=== PATIENT | female | born 1990 | race Caucasian/White ===

== ENCOUNTER 2022-08-03 16:28 | Emergency (ER) | payer MEDICAID, SELFPAY ==
[2022-08-03 17:00] VITALS: BP 106/72; PULSE 73; RESP 20; TEMP 36.8; O2SAT 96; BMI 28.0
--- NOTE | 2022-08-03 17:29 | EXP.UTC ---
Discharge Plan Disposition Patient Disposition: Home, Self-Care Condition: Good Prescriptions Prescriptions: New nitrofurantoin monohyd/m-cryst [Macrobid] 100 mg capsule 100 mg PO Q12H 5 Days Qty: 10 0RF Rx Instructions: must administer with a meal/food meclizine 25 mg tablet 25 mg PO TID PRN (Reason: dizziness) Qty: 15 0RF No Action desogestrel-ethinyl estradiol [Apri] 0.15-0.03 mg tablet 1 tab PO DAILY Referrals Follow up/Referrals: Provider,Referral, MD [Primary Care Provider] - See instructions Activity Restrictions/Add. Instructions Additional Instructions/Restrictions: Make sure to stand up slowly until medication helps with dizziness Follow up with your Family doctor if no improvement and immediately if any worsening of symptoms Straight to ER if any life threatening symptoms Return if needed Clinical Impressions Clinical Impression: Vertigo Stand Alone Forms Stand Alone Forms: Work/School Release Instructions Patient Instructions: Urinary Tract Infection, Vertigo, DI for Vertigo Discharge ED Provider: Nereida Oliveros [facility] General Stated complaint: Nausa Dizzy Time Seen by Provider: 08/03/22 17:29 History of Present Illness Provider Complaint: Patient states that she was getting out of bed this morning and felt like the room was spinning around her and it made her sick and she vomited States that all day today when she would move her head it made her feel dizzy like the room was spinning and would make her feel nauseous States that she hasnt had any fever or anything and not feeling ill Related Data Home Medications Medication Instructions Recorded Confirmed desogestrel 0.15 mg-ethinyl 1 tab PO DAILY control 08/03/22 08/03/22 estradiol 0.03 mg tablet (Apri) Previous Rx's Medication Instructions Recorded meclizine 25 mg tablet 25 mg PO TID PRN dizziness #15 tabs 08/03/22 nitrofurantoin 100 mg PO Q12H 5 days #10 caps 08/03/22 monohydrate/macrocrystals 100 mg capsule (Macrobid) Allergies Allergy/AdvReac Type Severity Reaction Status Date / Time latex Allergy Verified 08/03/22 17:35 Penicillins Allergy Verified 08/03/22 17:35 strawberry Allergy Verified 08/03/22 17:35 [facility] Disclaimer: The information contained in this section may have been updated after the patient was seen, as this information can be updated by other users. Social History Smoking Status: Unknown if ever smoked alcohol intake: never current occupational status: employed Travel in the last 8 weeks: None ROS Obtained: Yes All systems reviewed & no additional complaints except as documented and Yes Systems reviewed as appropriate & no additional complaints except as documented Constitutional Constitutional: Reports system reviewed and no additional complaints, except as documented, Reports as per HPI, Denies body ache, Denies chills and Denies fever(s) ENT Ears, Nose, Mouth, and Throat: Reports system reviewed and no additional complaints, except as documented, Reports as per HPI and Reports dizziness Cardiovascular Cardiovascular: Reports system reviewed and no additional complaints, except as documented and Reports as per HPI Respiratory Respiratory: Reports system reviewed and no additional complaints, except as documented and Reports as per HPI Gastrointestinal Gastrointestingal: Reports system reviewed and no additional complaints, except as documented, as per HPI, nausea and vomiting (after dizzy spell); Denies abdominal pain Genitourinary Female Genitourinary: Reports system reviewed and no additional complaints, except as documented, Reports as per HPI, Denies dysuria, Denies flank pain, Denies urinary frequency and Denies urinary urgency Neurologic Neurologic: Reports dizziness Physical Exam General General appearance: alert and in no apparent distress Eye Eye exam: Present normal appearance, PERRL and EOMI ENT ENT exam: Present mucous memb
[2022-08-03 17:32] LABS: UTC Pregnancy Test, Urine Negative (Negative)
[2022-08-03 17:33] LABS: Apearance,Urine Turbid (Clear); Color,Urine Dark Yellow (Yellow); Glucose,Urine (UA) Negative (Negative); Ketones,Urine TRACE (Negative); PH,Urine 7.5 (5.0-8.5); Protein,Urine 1+ (Negative)
[2022-08-03 17:34] LABS: Bilirubin,Urine Trace (Negative); Blood, Urine 3+ (Negative); UTC Leukocyte Esterase,Urine Trace (Negative); UTC Nitrate,Urine Negative (Negative); Urobilinogen,Urine 1 EU/dl (0.2)
--- NOTE | 2022-08-03 18:07 | PC.NURSE ---
Checked on pt and stated that since medication her dizziness is much better
[2022-08-03 18:12] VITALS: BP 106/72; PULSE 73; RESP 20; TEMP 36.8; O2SAT 96
== END 2022-08-03 18:12 | disposition home or self-care (01) ==
PROVIDERS: Emergency Provider Nurse Practitioner
DX: R42 Dizziness and giddiness (principal); R11.0 Nausea
CPT/HCPCS: 81003; 81025; 87086; 99212; 99214; G0463

== ENCOUNTER 2023-02-14 15:40 | Emergency (ER) | payer BC, SELFPAY ==
[2023-02-14 16:00] VITALS: BP 110/70; PULSE 83; RESP 19; TEMP 36.9; O2SAT 98; BMI 22.3
--- NOTE | 2023-02-14 16:30 | EXP.UTC ---
Discharge Plan Disposition Patient Disposition: Home, Self-Care Condition: Good Prescriptions Prescriptions: No Action Classic 28 mg iron- 800 mcg tablet 1 tab PO DAILY Referrals Follow up/Referrals: Patric Delgado MD [Primary Care Provider] - See instructions Activity Restrictions/Add. Instructions Additional Instructions/Restrictions: Follow up with OBGYN for further evaluation and examination Straight to ER if symptoms get worse Return if needed Straight to ER if any life threatening symptoms Clinical Impressions Clinical Impression: Encounter for test with result negative Discharge ED Provider: Neerida Oliveros [facility] [place] General Stated complaint: cramps, spotting, pos preg at home test Mode of Arrival: Ambulatory Source of Information: Patient Limitations: No Limitations Time Seen by Provider: 02/14/23 16:30 Description of Symptoms (Recalled from Triage Doc. by RN): Abdominal pain. She has been spotting blood, back pain, and positive home preg test. She had a tubal reversal november 18 HEENT Symptoms (Recalled from RN notes): No Resp Symptoms (Recalled from RN notes): No Skin Symptoms (Recalled from RN notes): No MS Symptoms (Recalled from RN notes): No Functional Status (Recalled from RN notes): n/a History of Present Illness Provider Complaint: Patient states that she has been having pain in her left lower abdomen, states that she had Tubal reversal surgery in October in [place] and she took several home test and they had a faint line and now she is spotting and having achy like pain in back so she came in to get checked Related Data Home Medications Medication Instructions Recorded Confirmed vits no.126-ferrous fum 1 tab PO DAILY Supplement 12/29/22 02/14/23 28 mg iron-folic acid 800 mcg tablet (Classic ) Allergies Allergy/AdvReac Type Severity Reaction Status Date / Time latex Allergy Verified 02/14/23 16:17 Penicillins Allergy Verified 02/14/23 16:17 strawberry Allergy Verified 02/14/23 16:17 Worker's Comp Is this a Worker's Comp case?: No [facility] Disclaimer: The information contained in this section may have been updated after the patient was seen, as this information can be updated by other users. Social History Smoking Status: Unknown if ever smoked alcohol intake: never current occupational status: employed Travel in the last 8 weeks: None ROS Obtained: Yes All systems reviewed & no additional complaints except as documented and Yes Systems reviewed as appropriate & no additional complaints except as documented Constitutional Constitutional: Reports system reviewed and no additional complaints, except as documented and Reports as per HPI ENT Ears, Nose, Mouth, and Throat: Reports system reviewed and no additional complaints, except as documented and Reports as per HPI Cardiovascular Cardiovascular: Reports system reviewed and no additional complaints, except as documented and Reports as per HPI Respiratory Respiratory: Reports system reviewed and no additional complaints, except as documented and Reports as per HPI Gastrointestinal Gastrointestingal: Reports system reviewed and no additional complaints, except as documented, as per HPI, abdominal pain and cramping Genitourinary Female Genitourinary: Reports system reviewed and no additional complaints, except as documented, Reports as per HPI and Reports flank pain Integumentary/Breasts Skin/Breast: Reports system reviewed and no additional complaints, except as documented and Reports as per HPI Neurologic Neurologic: Reports system reviewed and no additional complaints, except as documented and Reports as per HPI Physical Exam General General appearance: alert and in no apparent distress ENT ENT exam: Present mucous membranes moist Respiratory Respiratory exam: Present normal lung sounds bilaterally; Absent respirato
[2023-02-14 16:39] LABS: UTC Pregnancy Test, Urine Negative (Negative)
[2023-02-14 16:43] LABS: Microscopic, Urine URINE MICROSCOPIC (MICROSCOPIC)
[2023-02-14 16:52] LABS: Appearance,Urine CLEAR (Clear); Bilirubin,Urine Negative (Negative); Blood, Urine 2+ (Negative); Color,Urine YELLOW (Yellow); Glucose,Urine (UA) Negative (Negative); Ketones,Urine Negative (Negative); Leukocyte Esterase,Urine Negative (Negative); Nitrate,Urine Negative (Negative); Protein,Urine Negative (Negative); Specific Gravity, Urine >= 1.030 (1.005-1.030); Urobilinogen,Urine 0.2 EU/dl (0.2)
[2023-02-14 17:05] LABS: HCG Qualitative, Serum Negative (Negative)
[2023-02-14 17:15] VITALS: BP 110/70; PULSE 83; RESP 19; TEMP 36.9; O2SAT 98
[2023-02-14 17:22] LABS: RBC,Urine Occasional #/hpf (0-3)
== END 2023-02-14 17:15 | disposition home or self-care (01) ==
PROVIDERS: Emergency Provider Nurse Practitioner; PCP Family Medicine
DX: Z32.02 Encounter for pregnancy test, result negative (principal); R10.32 Left lower quadrant pain; M54.59 Other low back pain
CPT/HCPCS: 81001; 81025; 84703; 99212; 99213; G0463

== ENCOUNTER 2023-12-13 10:20 | Emergency (ER) | payer MEDICAID, SELFPAY ==
[2023-12-13] VITALS (9 sets, daily range): BP systolic 100–116; BP diastolic 59–79; PULSE 65–109; RESP 18–20; TEMP 36.9; O2SAT 95–100; BMI 27.1
--- NOTE | 2023-12-13 10:24 | HMH.EDGENADL ---
Discharge Plan Disposition Patient Disposition: Home, Self-Care Condition: Good Prescriptions Prescriptions: New cefdinir 300 mg capsule 300 mg PO BID 10 Days Qty: 20 0RF No Action Classic 28 mg iron- 800 mcg tablet 1 tab PO DAILY Referrals Follow up/Referrals: Klely Cifuentes DO [Primary Care Provider] - See instructions Activity Restrictions/Add. Instructions Additional Instructions/Restrictions: You have been evaluated in the ED for your complaints. You may follow-up with your PCP in the next 3 to 5 days. Please return to ED for any new or worsening symptoms. I have written for cefdinir to treat your UTI. Please take this as discussed. Please follow-up with [employer] [facility] [employer] [facility] as needed as discussed. Clinical Impressions Clinical Impression: Abdominal cramping, Vaginal bleeding, UTI (urinary tract infection) Discharge ED Provider: Dakota Avalos General Adult HPI General Chief complaint: Vaginal Bleeding Stated complaint: pos preg test, bleeding, abd pain, tubal reversal Time Seen by Provider: 12/13/23 10:24 History of Present Illness HPI narrative: 33-year-old female with past medical history significant for anxiety, depression, tubal reversal in October 2022, presents today for evaluation concerning vaginal bleeding which she states has been present over the past 2 days. She notes that she was supposed to have a menstrual cycle this past Wednesday and was late and so she took multiple tests at home that were positive. She states that she has also had abdominal cramping this morning since around 2:30 AM. Denies having any nausea, vomiting, fevers, chills, chest pain, shortness of breath. She denies any other associated symptoms at this time. No further complaints. Related Data Home Medications Medication Instructions Recorded Confirmed vits no.126-ferrous fum 1 tab PO DAILY Supplement 12/29/22 02/14/23 28 mg iron-folic acid 800 mcg tablet (Classic ) Previous Rx's Medication Instructions Recorded cefdinir 300 mg capsule 300 mg PO BID 10 days #20 caps 12/13/23 Allergies Allergy/AdvReac Type Severity Reaction Status Date / Time latex Allergy Verified 02/14/23 16:17 Penicillins Allergy Verified 02/14/23 16:17 strawberry Allergy Verified 02/14/23 16:17 [facility] Disclaimer: The information contained in this section may have been updated after the patient was seen, as this information can be updated by other users. Social History Smoking Status: Never smoker alcohol intake: never current occupational status: employed Travel in the last 8 weeks: None ROS Obtained: Yes All systems reviewed & no additional complaints except as documented Physical Exam General General appearance: alert and in no apparent distress Head Head exam: atraumatic and normocephalic Eye Eye exam: Present normal appearance, PERRL and EOMI ENT ENT exam: Present normal oropharynx and mucous membranes moist Neck Neck exam: Present full ROM; Absent meningismus Respiratory Respiratory exam: Absent respiratory distress, wheezes, stridor or accessory muscle use Cardiovascular Cardiovascular exam: Present normal rhythm Abdominal Exam Abdominal exam: Present soft and tenderness (Generalized tenderness to palpation of the abdomen); Absent distention, guarding, rebound or rigidity Neurological Exam Neurological exam: Present alert, oriented X3 and CN II-XII intact; Absent motor sensory deficit Psychiatric Psychiatric exam: Present normal affect and normal mood Skin Skin exam: Present warm and dry Medical Decision Making Medical Records Medical records reviewed: Yes I reviewed the patient's medical records. Alexi Inquiry Pt receiving controlled substance: No Alexi was queried for this patient: No Vital Signs: 12/13/23 10:29 12/13/23 10:34 12/13/23 10:43 Temperature 98.5 F Temperature Source Oral Pulse Rate 107 H 99 H Pulse Rate [Left Radial] 109 H Respiratory Rate 20 Blood Pressure 111/69 116/79 Blood Pressure [Right Arm] 111/69 Blood Pressure Mean [Right Arm] 83 02 Sat by Pulse Oximetry 99 100 98 Oxygen Delivery Method Room Air Room Air Room Air 12/13/23 11:00 12/13/23 11:30 12/13/23 12:00 Temperature Temperature Source Pulse Rate 77 70 69 Pulse Rate [Left Radial] Respiratory Rate Blood Pressure 110/77 103/64 L 103/68 L Blood Pressure [Right Arm] Blood Pressure Mean [Right Arm] 02 Sat by Pulse Oximetry 95 96 97 Oxygen Delivery Method Room Air Room Air Room Air Lab Data Lab Results 12/13/23 10:25: Urine Color Red, Urine Appearance Turbid, Urine pH 7.0, Ur Specific [place] 1.020, Urine Protein 3+, Urine Glucose (UA) Negative, Urine Ketones 1+, Urine Blood 3+, Urine Nitrate Positive, Urine Bilirubin 1+ A, Urine Urobilinogen 4.0, Ur Leukocyte Esterase 2+ A, Urine RBC Tntc, Urine WBC 10-20, Ur Squamous Epith Cells Occasional, Urine Bacteria 1+ 12/13/23 10:30: WBC 9.1, RBC 4.49, Hgb 13.7, Hct 40.2, MCV 89.7, MCH 30.6, MCHC 34.1, RDW 13.1, Plt Count 266, MPV 9.0, Neut % (Auto) 78.0, Lymph % (Auto) 16.8, Iron % (Auto) 3.7, Eos % (Auto) 1.0, Baso % (Auto) 0.6, Neut # (Auto) 7.1, Lymph # (Auto) 1.5, Iron # (Auto) 0.3, Eos # (Auto) 0.1, Baso # (Auto) 0.1, Sodium 140, Potassium 3.9, Chloride 106, Carbon Dioxide 27, Anion Gap 10.9, BUN 16, Creatinine 0.70, Estimated Creat Clear 107, Estimated GFR 97, Est GFR ( Amer) 117, Glucose 92, Lactate 0.9, Calcium 9.6, Total Bilirubin 0.6, AST 30, ALT 20, Alkaline Phosphatase 48, Total Protein 7.9, Albumin 4.6, Globulin 3.3 H, Albumin/Globulin Ratio 1.4, Lipase 99, Serum HCG, Qual Negative, Blood Type A Positive, Antibody Screen Negative 12/13/23 10:30 12/13/23 10:30 Orders (Tests/Meds): ED MEDICATIONS Discontinued Medications Generic Name Dose Route Start Last Admin Trade Name Indira PRN Reason Stop Dose Admin Acetaminophen 1,000 mg 12/13/23 10:31 12/13/23 10:42 Acetaminophen 500mg Tab PO 12/13/23 10:32 1,000 mg ONCE ONE Administration Ondansetron HCl 4 mg 12/13/23 10:31 12/13/23 10:42 Ondansetron 4mg Odt SL 12/13/23 10:32 4 mg ONCE ONE Administration ORDERS Category Date Time Status Type and Screen Stat BBK 12/13/23 10:30 Completed CBC w/Auto Diff [Complete Blood Count Auto Diff] Stat Lab 12/13/23 10:30 Completed CMP [Comprehensive Metabolic Panel] Stat Lab 12/13/23 10:30 Completed Lactic Acid Stat Lab 12/13/23 10:30 Completed Lipase Stat Lab 12/13/23 10:30 Completed Serum Beta HCG [HCG Qualitative, Serum] Stat Lab 12/13/23 10:30 Completed UA [Urinalysis and Microscopic] Stat Lab 12/13/23 10:25 Completed Urine Culture Stat Micro 12/13/23 10:25 Received Medical Decision Narrative: 33-year-old female with past medical history significant for anxiety, depression, tubal reversal in October 2022, presents today for evaluation concerning vaginal bleeding which she states has been present over the past 2 days. She notes that she was supposed to have a menstrual cycle this past Wednesday and was late and so she took multiple tests at home that were positive. She states that she has also had abdominal cramping this morning since around 2:30 AM. On assessment she was hemodynamically stable and in no acute distress. Afebrile. Chest clear to auscultation bilaterally. Abdomen was soft nondistended and generally tender to palpation. Other physical exam findings unremarkable. Differential diagnoses include not limited to , spontaneous , UTI, nephrolithiasis, among others. Labs today have been reassuring. No elevation in WBC at 9.1. No signs of anemia. Negative screen. Urinalysis showing positive leukocyte esterase. Positive nitrites. Blood present. 10-20 WBCs. Will treat as UTI. On reassessment patient remains hemodynamically stable and in no acute distress. She states that her pain is improved at this time after having Tylenol. I discussed current ED workup and results. Patient did at this time reports to me that she does have a history of an ovarian cyst on the right. Given the setting of vaginal bleeding and right lower quadrant pain, I had discussion with patient concerning my recommendation for transvaginal ultrasound and CT scan to further assess for any abnormalities however patient has noted multiple times that she would like to defer further imaging as she believes that her symptoms could be due to onset of menstrual cycle given that she was a few days late and is not on lab results. I discussed risks versus benefits and she verbalized understanding and agreement. I provided her with strict return ED precautions and instructions concerning follow-up with PCP and [employer] [facility] [facility]. She again verbalized understanding and agreement with plan. Subsequently discharged home hemodynamically stable and in no acute distress Critical Care Critical Care Time Critical Care Time: No
[2023-12-13] MEDS: ACETAMINOPHEN 500MG TAB 1000 MG PO (10:42)
[2023-12-13] MEDS: ONDANSETRON 4MG ODT 4 MG SL (10:42)
[2023-12-13 10:54] LABS: Chloride 106 mmol/L (98-107); Potassium 3.9 mmoL/L (3.5-5.1); Sodium 140 mmol/L (136-145)
[2023-12-13 10:56] LABS: Blood Urea Nitrogen 16 mg/dl (7-17); Creatinine Clearance Estimated 107 mL/min (50-200); Estimated Glomerular Filt Rate 97 ml/min (>60); GFR (African American) 117 ML/MIN (>60)
[2023-12-13 10:57] LABS: Alanine Aminotransferase 20 U/L (12-78); Albumin Level 4.6 g/dl (3.5-5.0); Albumin/Globulin Ratio 1.4 (1.1-1.8); Alkaline Phosphatase 48 U/L (38-126); Anion Gap 10.9 mEq/L (5-15); Aspartate Amino Transferase 30 U/L (14-36); Basophils # 0.1 K/mm3 (0-0.2); Basophils % 0.6 % (0.1-2.0); Bilirubin,Total 0.6 mg/dl (0.2-1.3); Calcium 9.6 mg/dl (8.4-10.2); Carbon Dioxide 27 mmol/L (22.0-30.0); Eosinophils # 0.1 K/mm3 (0.0-0.4); Globulin 3.3 g/dL (1.3-3.2); Glucose 92 mg/dl (74-100); Hematocrit 40.2 % (37.0-47.0); Hemoglobin 13.7 g/dL (12.2-16.2); Lipase 99 U/L (23-300); Lymphocytes # 1.5 K/mm3 (0.7-4.5); Lymphocytes % 16.8 % (10-50); Mean Corpuscular HGB Conc 34.1 g/dL (31.8-35.4); Mean Corpuscular Hemoglobin 30.6 pg (27.0-31.2); Mean Corpuscular Volume 89.7 fl (81-99); Monocytes # 0.3 K/mm3 (0.1-1.0); Monocytes % 3.7 % (1.7-9.3); Neutrophils # 7.1 K/mm3 (1.8-7.8); Platelet Count 266 K/mm3 (142-424); Red Blood Count 4.49 M/mm3 (4.20-5.40); Red Cell Distribution Width 13.1 % (11.5-17.5); Total Protein,Serum 7.9 g/dl (6.3-8.2); White Blood Count 9.1 K/mm3 (4.8-10.8)
[2023-12-13 10:58] LABS: Lactic Acid 0.9 mmol/L (0.7-2.1)
[2023-12-13 11:27] LABS: HCG Qualitative, Serum Negative (Negative)
--- NOTE | 2023-12-13 11:35 | PC.NURSE ---
DR FARFAN AT BEDSIDE
[2023-12-13 12:35] LABS: Microscopic, Urine URINE MICROSCOPIC (MICROSCOPIC)
[2023-12-13 12:39] LABS: Appearance,Urine TURBID (Clear); Blood, Urine 3+ (Negative); Color,Urine RED (Yellow); Glucose,Urine (UA) Negative (Negative); Ketones,Urine 1+ (Negative); Leukocyte Esterase,Urine 2+ (Negative); Nitrate,Urine POSITIVE (Negative); Protein,Urine 3+ (Negative)
[2023-12-13 12:59] LABS: Bilirubin,Urine 1+ (Negative); RBC,Urine TNTC #/hpf (0-3)
[2023-12-13 13:00] LABS: Bacteria,Urine 1+ /lpf; Squamous Epithelial Cell,Urine Occasional #/hpf (0-5)
== END 2023-12-13 13:21 | disposition home or self-care (01) ==
PROVIDERS: Emergency Provider Emergency Medicine; PCP Family Medicine
DX: N39.0 Urinary tract infection, site not specified (principal); B96.89 Other specified bacterial agents as the cause of diseases classified elsewhere; R10.819 Abdominal tenderness, unspecified site; R25.2 Cramp and spasm; N93.9 Abnormal uterine and vaginal bleeding, unspecified
CPT/HCPCS: 80053; 81001; 83605; 83690; 84703; 85025; 86850; 87086; 99284